=== PATIENT | male | born 1980 | race Caucasian/White ===

== ENCOUNTER 2018-09-06 10:43 | Outpatient (CLI) | payer OTHER ==
--- NOTE | 2018-09-06 11:35 | RAD ---
LUMBAR SPINE THREE VIEWS: HISTORY: Radiculopathy of the lumbar region. FINDINGS: There are mild degenerative changes in the lumbar spine. No compression fracture or subluxation is s een. No change in alignment is noted on flexion or extension images. POS: [facility]
== END 2018-09-06 10:44 | disposition home or self-care (01) ==
LOC: RAD 10:43
PROVIDERS: ATTEND Nurse Practitioner Family
DX: M47.26 Other spondylosis with radiculopathy, lumbar region (principal)
CPT/HCPCS: 72100